=== PATIENT | female | born 1990 | race Two or more races ===

== ENCOUNTER 2018-02-09 18:38 | Emergency (ER) | payer OTHER ==
[~2018-02-09] VITALS: Ht 175.3 cm; Wt 112.1 kg
[2018-02-09 18:45] VITALS: BP 154/107
[2018-02-09] MEDS ORDERED: KETOROLAC 30 MG/1 ML ONE (18:59)
[2018-02-09] MEDS ORDERED: DIAZEPAM 5 MG TABLET ONE (18:59)
[2018-02-09] MEDS ORDERED: DIAZEPAM 5 MG TABLET PO ONE (19:00)
[2018-02-09] MEDS ORDERED: KETOROLAC 30 MG/1 ML IM ONE (19:00)
== END 2018-02-09 19:36 | disposition home or self-care (01) ==
LOC: ED 19:10
DX: M54.5 Low back pain (principal)
CPT/HCPCS: 72110; 96372; 99284; J1885